=== PATIENT | female | born 1995 | race American Indian/Alaskan Native ===

== ENCOUNTER 2022-07-18 09:21 | Emergency (ER) | payer BC ==
[2022-07-18 09:28] VITALS: BP 140/100
--- NOTE | 2022-07-18 10:36 | Emergency Department Report ---
ED HPI - General Chief complaint: Vaginal Bleeding Stated complaint: POSS MISCARRIAGE/FATIGUE Source: patient, EMS Mode of arrival: Stretcher Limitations: No Limitations - History of Present Illness Initial comments: 26-year-old 5 weeks female presents to the ED for vaginal bleeding. Patient is a 2 para 2 A1. Patient was previously admitted at [facility] on 911 and with diagnosed with a threatened miscarriage. She has a hCG of 2400 and ultrasound subchronic hemorrhage. Patient has an appointment with [place] [facility] in the a.m.. Patient states the pain is a current 5 out of 10. Patient is alert and oriented x3. No acute distress noted. No ill appearance noted. MD Complaint: vaginal bleeding Onset/Timin Location: abdomen Severity: moderate Severity scale (0 -10): 5 Quality: cramping Consistency: intermittent Improves with: none Worsens with: none Associated symptoms: denies other symptoms Vaginal bleeding: light :: Yes OB History - Current : no complications OB History - Previous Pregnancies: no complications Last menstrual period: 06/09/22 - Related Data : 2 Para: 1 Ab: 0 Allergies Allergy/AdvReac Type Severity Reaction Status Date / Time prednisone AdvReac Unknown Verified 07/18/22 09:28 sulfamethoxazole AdvReac Unknown Verified 07/18/22 09:28 [From Bactrim] trimethoprim [From Bactrim] AdvReac Unknown Verified 07/18/22 09:28 ED Review of Systems ROS: Stated complaint: POSS MISCARRIAGE/FATIGUE Other details as noted in HPI Constitutional: denies: chills, fever Eyes: denies: eye pain, eye discharge, vision change ENT: denies: ear pain, throat pain Respiratory: denies: cough, shortness of breath, wheezing Cardiovascular: denies: chest pain, palpitations Endocrine: no symptoms reported Gastrointestinal: denies: abdominal pain, nausea, diarrhea Genitourinary: denies: urgency, dysuria, discharge Musculoskeletal: denies: back pain, joint swelling, arthralgia Skin: denies: rash, lesions Neurological: denies: headache, weakness, paresthesias Psychiatric: denies: anxiety, depression Hematological/Lymphatic: denies: easy bleeding, easy bruising ED Physical Exam - General Limitations: No Limitations General appearance: alert, in no apparent distress - Head Head exam: Present: atraumatic, normocephalic - Eye Eye exam: Present: normal appearance - ENT ENT exam: Present: mucous membranes moist - Neck Neck exam: Present: normal inspection - Respiratory Respiratory exam: Present: normal lung sounds bilaterally. Absent: respiratory distress - Cardiovascular Cardiovascular Exam: Present: regular rate, normal rhythm. Absent: systolic murmur, diastolic murmur, rubs, gallop - GI/Abdominal GI/Abdominal exam: Present: soft, normal bowel sounds - Speculum exam: Present: vaginal bleeding - Extremities Exam Extremities exam: Present: normal inspection - Back Exam Back exam: Present: normal inspection - Neurological Exam Neurological exam: Present: alert, oriented X3 - Psychiatric Psychiatric exam: Present: normal affect, normal mood - Skin Skin exam: Present: warm, dry, intact, normal color. Absent: rash ED Course Vital Signs 07/18/22 09:26 Temperature 98 F Pulse Rate 104 H Respiratory 14 Rate Blood Pressure 140/100 [Left] O2 Sat by Pulse 99 Oximetry ED Medical Decision Making - Medical Decision Making 26-year-old 5 weeks female presents to the ED for vaginal bleeding. Patient is a 2 para 2 A1. Patient was previously admitted at [facility] on and with diagnosed with a threatened miscarriage. She has a hCG of 2400 and ultrasound subchronic hemorrhage. Patient has an appointment with [place] [facility] in the a.m.. Patient states the pain is a current 5 out of 10. Patient is alert and oriented x3. No acute distress noted. No ill appearance noted. Physical examination is unremarkable. Patient left AMA. She states that she was going back to [facility]. Patient signed AMA form. Patient is discussed patient in the low risk of leaving and staying. Patient has medical capacity of making decision. Patient left the hospital stable. No acute distress noted. Critical care attestation.: If time is entered above; I have spent that time in minutes in the direct care of this critically ill patient, excluding procedure time. ED Disposition Clinical Impression: Vaginal bleeding affecting early Disposition: LEFT WITHOUT BEING SEEN Is pt being admited?: No Does the pt Need Aspirin: No Condition: Stable Referrals: PRIMARY CARE, [Primary Care Provider] - 3-5 Days
== END 2022-07-18 10:54 | disposition left against medical advice (07) ==
LOC: ED 09:21
DX: O20.8 Other hemorrhage in early pregnancy (principal); Z3A.00 Weeks of gestation of pregnancy not specified; Z79.899 Other long term (current) drug therapy
CPT/HCPCS: 99283